=== PATIENT | female | born 1950 | race Caucasian/White ===

== ENCOUNTER 2019-01-22 11:48 | Outpatient (CLI) | payer MEDICARE, OTHER ==
--- NOTE | 2019-01-23 17:30 | OP Clinic Progress Note ---
SUBJECTIVE: Shelley Diez is a 68-year-old female presenting today for a more recent onset of left great toenail medial nail border pain. The pain has been significant and is starting to become a little bit swollen on that inside edge according to the patient. She would like to have a procedure performed to remove the inside edge of this nail permanently. The patient does not admit to any fevers, chills, nausea, vomiting, shortness of breath or chest pain at this time. The patient also denies being diabetic. She is here for a different reason than her usual visit. The patient does not admit to any tobacco use. OBJECTIVE: Vitals: No temperature was recorded. Blood pressure was 130/70, heart rate 78. There was no respiration rate recorded. Oxygen saturation was 94% on room air, and pain 3/10. I am not sure why the nurse did not record these today. Vascular: 2+ DP and PT pulses, left foot. Capillary refill time is less than 3 seconds to the toes of the left foot. There is no edema noted except for a very small amount of edema located on the medial border of the left great toenail area. Dermatologic: There is not really any erythema noted nor purulence nor drainage of any kind on that medial border of the left great toenail. There are no other concerning areas at this time. No other signs of infection are noted. Musculoskeletal: There is pain on palpation noted along the entire length of the medial border of the left great toenail. There are no other gross abnormalities noted at this time. Neurologic: Light touch sensation is intact to the toes, left foot. ASSESSMENT AND PLAN: Onychocryptosis left hallux medial nail border. I do not see any signs of infection at this time or cellulitis. After a good discussion about a temporary versus permanent procedure, the patient has elected to go forward with a partial nail avulsion of the medial border of the left great toenail with chemical matrixectomy. She understands that the recovery time will be a little bit longer and that she will need to do dressing changes more frequently at the beginning. The risks and benefits of the procedure including but not limited to bleeding and infection were discussed with the patient and consent was signed and placed in the chart for the above procedure. Verbal consent was given as well. PROCEDURE #1: Partial nail avulsion of the medial nail border of the left great toe with chemical matrixectomy. An alcohol swab was applied to the base of the left great toe and 6 mL of a 1:1 mix of 2% lidocaine plain and 0.5% Marcaine plain were injected into the base of the toe. Anesthesia was obtained and Betadine prep was performed. Anesthesia was obtained appropriately after checking it. At this time a nail splitter and spatula was utilized to loosen and remove the medial border of the left great toenail for a partial nail avulsion. The nail was checked and confirmed to be completely removed on that medial border. The site then had phenol acid applied with a Q-Tip in the area for 3 applications consisting of 45 seconds, 45 seconds, and 30 seconds. It should be noted that a tourniquet was applied after exsanguinating the left great toe prior to beginning the procedure, but after the numbing of the toe. This tourniquet was removed and a prompt hyperemic response was noted to the left great toe. At this time 70% isopropyl alcohol was applied in abundance in order to rinse out and dilute the acid from the wound site. Triple antibiotic ointment was also applied prior to acid application around the edge of the wound in order to protect the skin. At this time the wound site was flushed well with the 70% isopropyl alcohol, cleaned and dried and dressings applied consisting of Silvadene, 4x4 gauze, 2-inch Imelda and 1-inch Coban beginning on the toe and extending onto the distal forefoot to hold it on well. The patient tolerated the procedure well. There was very mild bleeding. This was controlled with pressure. The patient understands I will be out of town the through the and she then will also be on her own vacation towards the end of that time and extending beyond and so it will be 3-1/2 weeks before she can see me again. She knows that I usually will have patients come and see me for follow-up in a week to make sure I dont need to debride any tissue that could stop some drainage. She states that she will watch it carefully and if any signs of infection while in [place], or before or after she will need to seek antibiotics and medical care wherever she is. She understands this risk and the need to do so. Return to the clinic in 3-1/2 weeks when she returns from her vacation. We will follow up and make sure that is healing appropriately. The patient was given written and verbal instructions regarding care of the nail and she is okay to do Epsom salt soaks as long as she washes her foot separately and then puts into a clean bath of Epsom salt soak in water just for her foot. She also can shower as long as she washes her toe last and then applies antibiotic ointment and a Band- Aid daily. She may need to do it twice daily for the first week. The patient understands this. She knows to do this for about 1-1/2 weeks and then to switch to 1 a day antibiotic and a Band-Aid and then to just a Band-Aid for a week after about 2 weeks from now. The patient had no further questions or concerns and I will see her in about 3-1/2 weeks. She is grateful we could get her in and take care of this today. Cheri SalazarP.[email or web address] (Dictated/Not Signed) Renny Job#: [id number] MTDD
== END 2019-01-22 11:50 ==
LOC: POD 11:48
PROVIDERS: ATTEND Podiatrist Foot & Ankle Surgery
DX: L60.0 Ingrowing nail (principal)
CPT/HCPCS: 11750; A4554